=== PATIENT | male | born 2000 | race American Indian/Alaskan Native ===

== ENCOUNTER 2019-01-21 12:31 | Emergency (ER) | payer OTHER ==
--- NOTE | 2019-01-21 13:11 | Emergency Department Report ---
Blank Doc - Documentation Documentation: This is a 18-year-old male that presents with n/v and dizziness. This initial assessment/diagnostic orders/clinical plan/treatment(s) is/are subject to change based on patient's health status, clinical progression and re- assessment by fellow clinical providers in the ED. Further treatment and workup at subsequent clinical providers discretion. Patient/guardians urged not to elope from the ED as their condition may be serious if not clinically assessed and managed. Initial orders include: 1- Patient sent to [facility] for further evaluation and treatment 2- labs 3- UA
[2019-01-21 14:05] LABS: Basophils % (Auto) 0.2 % (0.0-1.8); Eosinophils % (Auto) 0.1 % (0.0-4.3); Hematocrit 45.5 % (35.5-45.6); Hemoglobin 15.5 gm/dl (11.8-15.2); Lymphocytes # (Auto) 0.4 K/mm3 (1.2-5.4); Lymphocytes % (Auto) 5.7 % (13.4-35.0); Mean Corpuscular HGB Conc 34 % (32-34); Mean Corpuscular Volume 85 fl (84-94); Monocytes # (Auto) 0.6 K/mm3 (0.0-0.8); Monocytes % (Auto) 7.8 % (0.0-7.3); Platelet Count 250 K/mm3 (140-440); Red Blood Count 5.37 M/mm3 (3.65-5.03); Red Cell Distribution Width 13.9 % (13.2-15.2)
[2019-01-21 14:20] LABS: Alanine Aminotransferase 28 units/L (7-56); Albumin 4.4 g/dL (3.9-5); BUN/Creatinine Ratio 13; Bilirubin,Direct 0.3 mg/dL (0-0.2); Blood Urea Nitrogen 10 mg/dL (9-20); Calcium 9.2 mg/dL (8.4-10.2); Hemolysis Index 23
[2019-01-21] MEDS ORDERED: NACL 0.9% 1000 ML 1,000 ML IV ONE (14:49)
[2019-01-21] MEDS ORDERED: ZOFRAN IV ONE (14:49)
--- NOTE | 2019-01-21 15:39 | Emergency Department Report ---
Pediatric NVD - HPI Chief Complaint: Nausea/Vomiting/Diarrhea Stated Complaint: VOMITING/WEAKNESS Time Seen by Provider: 01/21/19 13:10 Duration: 3 Days Nausea/Vomiting Severity: Mild Diarrhea Severity: Mild Severity: Mild Urine Output: Normal Symptoms: Yes Able to Tolerate PO Fluids, No Listless Behavior, No Bloody sara rrhea, No Fever, No Recent Travel, No Family or Contacts with Similar Symptoms, No Rash Other History: Patient is a 18-year-old -[place] male who comes to the ER with nausea and vomiting. He is accompanied by his mother. Note that the patient has HIV but is not on antivirals. He is well-appearing of normal weight and does not appear cachectic or ill. His mother reports that he has over the years had episodes of unexplained nausea and vomiting. During his time waiting for provider evaluation patient has had no nausea or vomiting. He is playing on his phone door and provider exam and is in no acute distress. ED Review of Systems ROS: Stated complaint: VOMITING/WEAKNESS Other details as noted in HPI Comment: All other systems reviewed and negative Pediatric Past Medical History - Chronic Health Problems Hx Asthma: No Hx Diabetes: No Hx HIV: Yes Hx Renal Disease: No Hx Sickle Cell Disease: No Hx Seizures: No - Immunizations Immunizations Up to Date: Yes Pediatric N/V/D - Exam General: Vital signs noted. No distress. Alert and acting appropriately. General: Listlessness: No, Lethargy: No, Well Appearing: Yes Peds HEENT: Pharyngeal Erythema: No, Rhinorrhea: No, Moist mucus membranes: Yes Peds neck exam: Adenopathy: No, Supple: Yes Lungs: Yes Clear Lung Sounds, Yes Good Air Exchange, No Wheezes, No Stridor, No Cough, No Nasal Flaring, No Retractions, No Use of Accessory Muscles Peds Heart: Heart Murmur: No, Hyperdynamic Precordium: No, Strong Pulses: Yes, Good Capillary Refill: Yes Peds abdomen: Abdominal Tenderness: No, Peritoneal Signs: No, Normal Bowel Sounds: Yes, Distention: No Skin exam: Rash: No, Edema: No, Normal turgor: Yes ED Course Vital Signs 01/21/19 13:11 Temperature 98.7 F Pulse Rate 109 H Respiratory 16 Rate Blood Pressure 151/67 O2 Sat by Pulse 99 Oximetry - Reevaluation(s) Reevaluation #1: 01/21/19 15:38 hx n/v ED Medical Decision Making - Lab Data Result diagrams: 01/21/19 13:39 01/21/19 13:39 - Medical Decision Making Vital Signs 01/21/19 13:11 Temperature 98.7 F Pulse Rate 109 H Respiratory 16 Rate Blood Pressure 151/67 O2 Sat by Pulse 99 Oximetry Lab Results 01/21/19 01/21/19 Range/Units 13:39 13:39 WBC 7.3 (4.5-11.0) K/mm3 RBC 5.37 H (3.65-5.03) M/mm3 Hgb 15.5 H (11.8-15.2) gm/dl Hct 45.5 (35.5-45.6) % MCV 85 (84-94) fl MCH 29 (28-32) pg MCHC 34 (32-34) % RDW 13.9 (13.2-15.2) % Plt Count 250 (140-440) K/mm3 Lymph % (Auto) 5.7 L (13.4-35.0) % [place] % (Auto) 7.8 H (0.0-7.3) % Eos % (Auto) 0.1 (0.0-4.3) % Baso % (Auto) 0.2 (0.0-1.8) % Lymph # 0.4 L (1.2-5.4) K/mm3 [place] # 0.6 (0.0-0.8) K/mm3 Eos # 0.0 (0.0-0.4) K/mm3 Baso # 0.0 (0.0-0.1) K/mm3 Seg Neutrophils % 86.2 H (40.0-70.0) % Seg Neutrophils # 6.3 (1.8-7.7) K/mm3 Sodium 139 (137-145) mmol/L Potassium 3.7 (3.6-5.0) mmol/L Chloride 102.6 (98-107) mmol/L Carbon Dioxide 24 (22-30) mmol/L Anion Gap 16 mmol/L BUN 10 (9-20) mg/dL Creatinine 0.8 (0.8-1.5) mg/dL Estimated GFR > 60 ml/min BUN/Creatinine Ratio 13 % Glucose 118 H (75-100) mg/dL Calcium 9.2 (8.4-10.2) mg/dL Total Bilirubin 2.30 H (0.1-1.2) mg/dL Direct Bilirubin 0.3 H (0-0.2) mg/dL Indirect Bilirubin 2.0 mg/dL AST 27 (5-40) units/L ALT 28 (7-56) units/L Alkaline Phosphatase 80 (35-129) units/L Total Protein 7.7 (6.3-8.2) g/dL Albumin 4.4 (3.9-5) g/dL Albumin/Globulin Ratio 1.3 % Lipase 18 (13-60) units/L Patient was hydrated with normal saline and given Zofran Being discharged home with his family. Patient has discharge instructions including follow-up regarding his HIV. Patient is taking by mouth. He is nonf ebrile. He is ambulatory. He has had no vomiting in the emergency room. Critical care attestation.: If time is entered above; I have spent that time in minutes in the direct care of this critically ill patient, excluding procedure time. ED Disposition Clinical Impression: Nausea & vomiting, HIV (human immunodeficiency virus infection) Disposition: DC-01 TO HOME OR SELFCARE Is pt being admited?: No Does the pt Need Aspirin: No Condition: Stable Instructions: Gastroenteritis (ED) Additional Instructions: DIET TOLERATED MEDS ORDERED TODAY IN ER FOLLOW INSTRUCTIONS ON THE BOTTLE FOLLOW UP PCP WITHIN 48 HOURS TO ENSURE YOU ARE GETTING BETTER ACTIVITY TOLERATED MOTRIN OR TYLENOL FOR PAIN OR FEVER RETURN TO THE ER FOR WORSENING SYMPTOMS NOT RELIEVED BY YOUR MEDICATIONS. Prescriptions: Ondansetron [Zofran Odt] 4 mg PO Q8HR PRN #10 tab.rapdis PRN Reason: Vomiting Referrals: [facility] [Outside] - 3-5 Days Forms: Accompanied Note Time of Disposition: 15:37
[2019-01-21 16:18] LABS: Bacteria,Urine 1+ /HPF (Negative); Bilirubin,Urine NEG (Negative); Blood,Urine MOD (Negative); Color,Urine Yellow (Yellow); Mucus,Urine FEW /HPF; Urobilinogen,Urine < 2.0 mg/dL (<2.0)
[2019-01-21 16:55] VITALS: BP 136/71
== END 2019-01-21 16:53 | disposition home or self-care (01) ==
LOC: ED 12:31
DX: R11.2 Nausea with vomiting, unspecified (principal)
CPT/HCPCS: 36415; 80048; 80076; 81001; 83690; 85025; 96361; 96374; 99283; J2405; J7030